=== PATIENT | female | born 1990 | race American Indian/Alaskan Native ===

== ENCOUNTER 2017-09-15 14:21 | Emergency (ER) | payer OTHER, BC ==
[2017-09-15 14:22] VITALS: BMI 20.9
[2017-09-15 14:35] VITALS: BP 97/63; PULSE 98; RESP 18; TEMP 98.3; O2SAT 99
[2017-09-15] MEDS ORDERED: Naproxen 550 mg Tab PO STA (16:33)
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
[2017-09-15] MEDS ORDERED: Naproxen 550 mg Tab PO ONE (16:41)
--- NOTE | 2017-09-15 18:08 | RAD ---
HISTORY: pain COMPARISON: No prior. FINDINGS: BONES: Alignment maintained. No fracture. DISC SPACES: Normal. SOFT TISSUES: Normal. OTHER FINDINGS: None. IMPRESSION: Normal radiographs of the thoracic spine.
--- NOTE | 2017-09-16 10:17 | RAD ---
PROCEDURE: AP lateral and open-mouth views of the cervical spine performed. Partial obscuration of the distal odontoid by overlying occiput in the open-mouth projection. Incomplete opacification HISTORY: Pain. COMPARISON: None. FINDINGS: BONES: No acute compression fractures nor retropulsed fragments. Vertebral bodies exhibit normal stature. There is very slight kyphotic angulation deformity centered at the C4-C5 level with straightening of the cervical spine above and below this level. DISC SPACES: Disc space heights maintained. . There may also be minimal early anterior osteophyte formation at the C5-C6 and C6-C7 levels. SOFT TISSUES: Normal. No prevertebral soft tissue swelling. OTHER FINDINGS: None. IMPRESSION: Slightly limited study as described. Minor kyphosis centered at the C4-C5 level with straightening of the cervical spine above and below this level. Suspect minimal early anterior osteophyte formation C5-C6 and C6-C7 levels. If pain persists, consider followup the CT scan or MRI if further evaluation is required
== END 2017-09-15 18:55 | disposition home or self-care (01) ==
LOC: C.ER 14:21
DX: S16.1XXA Strain of muscle, fascia and tendon at neck level, initial encounter (principal); V43.52XA Car driver injured in collision with other type car in traffic accident, initial encounter; Y92.410 Unspecified street and highway as the place of occurrence of the external cause